=== PATIENT | male | born 1975 | race Caucasian/White ===

== ENCOUNTER 2020-05-01 13:52 | Emergency (ER) | payer OTHER ==
[~2020-05-01 13:52] MED LIST: HYDROCHLOROTHIA50 MG PO; NORVASC10 MG PO; OMNICEF 300 MG300 MG PO; PREDNISONE 20 M20 MG GT; VENTOLIN HFA 66.7 GM INH; ZITHROMAX250 MG PO
[2020-05-01 17:21] LABS: RED BLOOD COUNT 4.79 M/UL (4.20-5.50); WHITE BLOOD COUNT 16.3 K/UL (4.5-11.0)
[2020-05-01 17:51] LABS: BUN/CREATININE RATIO 10 (0-10)
[2020-05-01] MEDS ORDERED: DOXYCYCLINE HY100 MG PO (21:46)
[2020-05-01] MEDS ORDERED: TOPROL XL25 MG PO (21:46)
[2020-05-01] MEDS ORDERED: LISINOPRIL10 MG PO (21:46)
[2020-08-29] MEDS ORDERED: VENTOLIN HFA 66.7 GM INH (11:14)
[2020-08-29] MEDS ORDERED: ECOTRIN81 MG PO (11:15)
[2020-08-29] MEDS ORDERED: ISOSORBIDE MONO30 MG PO (11:15)
[2020-08-29] MEDS ORDERED: ZOFRAN4 MG PO (11:15)
[2020-08-29] MEDS ORDERED: LISINOPRIL20 MG PO (11:15)
== END 2020-05-01 23:30 | disposition home or self-care (01) ==
LOC: ER1 13:52
PROVIDERS: Family Medicine
DX: J40 Bronchitis, not specified as acute or chronic (principal); R79.89 Other specified abnormal findings of blood chemistry; I10 Essential (primary) hypertension; Z20.822 Contact with and (suspected) exposure to COVID-19; F17.210 Nicotine dependence, cigarettes, uncomplicated
CPT/HCPCS: 0240U; 36415; 71046; 80053; 82550; 82553; 83874; 83880; 84484; 85025; 85379; 93005; 96374; 96375; 99285

== ENCOUNTER 2020-07-03 15:55 | Emergency (ER) | payer OTHER ==
[~2020-07-03 15:55] MED LIST changes: +DOXYCYCLINE HY100 MG PO; +LISINOPRIL10 MG PO; +TOPROL XL25 MG PO
[2020-07-03 17:24] LABS: RED BLOOD COUNT 5.77 M/UL (4.20-5.50); WHITE BLOOD COUNT 16.7 K/UL (4.5-11.0)
[2020-07-03 17:48] LABS: BUN/CREATININE RATIO 14 (0-10)
[2020-07-03] MEDS ORDERED: PERCOCET 5/325 T1 EA PO (21:14)
[2020-07-03] MEDS ORDERED: US of Gallbladder (21:14)
[2020-07-03] MEDS ORDERED: ZOFRAN ODT 4 MG4 MG GT (21:14)
[2020-07-03] MEDS ORDERED: [UNRECOGNIZED DRUG - REMARK] (21:14)
[2020-08-29] MEDS ORDERED: VENTOLIN HFA 66.7 GM INH (11:14)
[2020-08-29] MEDS ORDERED: ZOFRAN4 MG PO (11:15)
[2020-08-29] MEDS ORDERED: LISINOPRIL20 MG PO (11:15)
[2020-08-29] MEDS ORDERED: ECOTRIN81 MG PO (11:15)
[2020-08-29] MEDS ORDERED: ISOSORBIDE MONO30 MG PO (11:15)
== END 2020-07-03 21:40 | disposition home or self-care (01) ==
LOC: ER1 15:55
PROVIDERS: Family Medicine
DX: K85.90 Acute pancreatitis without necrosis or infection, unspecified (principal); I10 Essential (primary) hypertension; F17.210 Nicotine dependence, cigarettes, uncomplicated
CPT/HCPCS: 80053; 81001; 82150; 83605; 83690; 85025; 99284; Q9967

== ENCOUNTER 2020-07-05 14:01 | Outpatient (CLI) | payer OTHER ==
[~2020-07-05 14:01] MED LIST changes: +PERCOCET 5/325 T1 EA PO; +US of Gallbladder; +ZOFRAN ODT 4 MG4 MG GT; +[UNRECOGNIZED DRUG - REMARK]
[2020-07-05 15:42] LABS: BUN/CREATININE RATIO 16 (0-10)
[2020-08-29] MEDS ORDERED: VENTOLIN HFA 66.7 GM INH (11:14)
[2020-08-29] MEDS ORDERED: ECOTRIN81 MG PO (11:15)
[2020-08-29] MEDS ORDERED: ISOSORBIDE MONO30 MG PO (11:15)
[2020-08-29] MEDS ORDERED: ZOFRAN4 MG PO (11:15)
[2020-08-29] MEDS ORDERED: LISINOPRIL20 MG PO (11:15)
== END 2020-07-05 17:00 | disposition home or self-care (01) ==
LOC: LAB 14:01
PROVIDERS: Family Medicine
DX: K85.90 Acute pancreatitis without necrosis or infection, unspecified (principal)
CPT/HCPCS: 36415; 80053; 83690; A9502

== ENCOUNTER → 2020-07-10 | Outpatient (CLI) | payer OTHER ==
[~2020-07-10] MED LIST changes: +ECOTRIN81 MG PO; +ISOSORBIDE MONO30 MG PO; +LISINOPRIL20 MG PO; +ZOFRAN4 MG PO
[2020-07-10 12:25] LABS: RED BLOOD COUNT 4.96 M/UL (4.20-5.50); WHITE BLOOD COUNT 12.7 K/UL (4.5-11.0)
[2020-07-10 12:27] LABS: HEMOGLOBIN 14.4 gm/dl (14.0-17.5)
[2020-07-10 12:53] LABS: BUN/CREATININE RATIO 15 (0-10)
== END ==
LOC: NM 06-06 12:00 → ECHO 06-06 12:00 → NM 06-06 13:00
PROVIDERS: Internal Medicine Cardiovascular Disease
DX: I20.8 Other forms of angina pectoris (principal); R06.02 Shortness of breath; I10 Essential (primary) hypertension; R94.39 Abnormal result of other cardiovascular function study
CPT/HCPCS: 36415; 78452; 80053; 80061; 83880; 84439; 84443; 84484; 85025; 93017; J2785

== ENCOUNTER → 2020-07-11 | Outpatient (CLI) | payer OTHER | LOC: NM 12:56 | DX: I20.8 Other forms of angina pectoris (principal); R06.02 Shortness of breath | CPT/HCPCS: A9502 ==

== ENCOUNTER → 2020-08-17 | Outpatient (CLI) | payer OTHER ==
[2020-08-17 17:11] LABS: HEMOGLOBIN 14.2 gm/dl (14.0-17.5); RED BLOOD COUNT 4.89 M/UL (4.20-5.50); WHITE BLOOD COUNT 12.2 K/UL (4.5-11.0)
[2020-08-17 17:22] LABS: BUN/CREATININE RATIO 14 (0-10)
== END ==
LOC: LAB 15:43
PROVIDERS: Internal Medicine Interventional Cardiology
DX: I20.8 Other forms of angina pectoris (principal); I10 Essential (primary) hypertension
CPT/HCPCS: 80048; 85025; 85610; 85730

== ENCOUNTER → 2020-08-29 | Outpatient (CLI) | payer OTHER | LOC: CATH 09:06 | DX: I25.118 Atherosclerotic heart disease of native coronary artery with other forms of angina pectoris (principal); I10 Essential (primary) hypertension; F17.210 Nicotine dependence, cigarettes, uncomplicated; Z79.82 Long term (current) use of aspirin; Z79.899 Other long term (current) drug therapy | CPT/HCPCS: 93005; 93571; 99152; 99153; C1769; C1887; C1894; J0153; J1644; J2250; J3010; J7030; Q9967 ==

== ENCOUNTER → 2020-11-08 | Outpatient (CLI) | payer OTHER | LOC: HEART 5 13:03 | DX: R94.39 Abnormal result of other cardiovascular function study (principal); R94.30 Abnormal result of cardiovascular function study, unspecified; I20.8 Other forms of angina pectoris; R06.02 Shortness of breath | CPT/HCPCS: 93306 ==